=== PATIENT | male | born 1935 | race Caucasian/White ===

== ENCOUNTER → 2016-06-28 | Outpatient (CLI) | payer MEDICARE, BC ==
[2013-12-10 15:37] VITALS: BP 149/80
[~2016-06-28] MED LIST: CONTRAST GIVEN MC PRN; DUTA0.5C PO; IOHEXOL 240 MG/ML 50ML VIAL. PO ONE; IOHEXOL 300 MG/ML 100ML VIAL. IV ONE; LITH300T PO; [UNRECOGNIZED DRUG - CODE] PO
--- NOTE | 2016-06-28 16:14 | KCIC ---
CT abdomen and pelvis with contrast Indication: Bilateral inguinal hernias. Axial imaging through the abdomen and pelvis was performed after the administration of intravenous contrast. PQRS STATEMENT One or more of the following individualized dose reduction techniques were utilized for this study: 1.Automated exposure control. 2.Adjustment of the mA and/orkVaccording to patient size. 3.Use of iterative reconstruction technique. No prior studies are available for comparison. The lung bases are clear. The liver and gallbladder are unremarkable. The pancreas and spleen are unremarkable. No adrenal mass is detected. The kidneys are unremarkable. Aorta is non aneurysmal. No central retroperitoneal or mesenteric lymphadenopathy is detected. The small and large bowel loops are normal caliber. There is diverticulosis of the descending colon and sigmoid, however, no evidence of acute diverticulitis. No free fluid is seen. There are bilateral inguinal hernias. The right inguinal hernia does contain a loop of small bowel but no definite evidence of small bowel obstruction is seen. The left inguinal hernia is fat containing. No free air is seen. Impression: Bilateral inguinal hernias. The right inguinal hernia does contain a loop of small bowel but there is no evidence of small bowel obstruction. The left inguinal hernia is fat containing. The study is otherwise unremarkable. Uncomplicated diverticulosis. Electronically signed by: Cali Le MD (Jun 28, 2016 16:13:28)
== END | disposition home or self-care (01) ==
LOC: KCIC CT 14:31
PROVIDERS: ATTEND Nurse Practitioner Family
DX: K40.20 Bilateral inguinal hernia, without obstruction or gangrene, not specified as recurrent (principal); Z87.891 Personal history of nicotine dependence
CPT/HCPCS: 74177; Q9966; Q9967; 82565

== ENCOUNTER 2016-08-06 09:15 | Day surgery (SDC) | payer MEDICARE, BC ==
[~2016-08-06] VITALS: Ht 177.8 cm; Wt 76.2 kg
[~2016-08-06 09:15] MED LIST changes: +ACETAMINOPHEN INTRAVENOUS 100 ML IV ONE; +BUPIVACAINE-EPI 0.25%-1:200000 MPF 30 ML VIAL. ONE; -CONTRAST GIVEN MC PRN; +HYDROmorphone 2 MG/ML VIAL IV PRN; -IOHEXOL 240 MG/ML 50ML VIAL. PO ONE; -IOHEXOL 300 MG/ML 100ML VIAL. IV ONE; +IV RINGERS,LACTATED 1000ML 1,000 ML IV SCH; +LIDOCAINE 1% 1 ML SYRINGE. ID PRN; -LITH300T PO; +LITH300T30 PO; +MORPHINE SULFATE 2 MG/ML DISP.SYRIN. IV PRN; +ONDANSETRON PF 4 MG/2 ML VIAL. IV PRN; +PROCHLORPERAZINE 10 MG/2 ML VIAL. IV PRN; +fentaNYL PF VIAL 100 MCG/2 ML VIAL IV PRN
[2016-08-06] MEDS ORDERED: LITH600C PO (10:26)
[2016-08-06] MEDS ORDERED: IV RINGERS,LACTATED 1000ML 1,000 ML IV SCH (10:30)
[2016-08-06] MEDS ORDERED: LIDOCAINE 2% 100 MG/5 ML SYRINGE. ONE (11:46)
[2016-08-06] MEDS ORDERED: PROPOFOL 20 ML IV ONE (11:46)
[2016-08-06] MEDS ORDERED: SUCCINYLCHOLINE 200 MG/10 ML VIAL. ONE (11:47)
[2016-08-06] MEDS ORDERED: ROCURONIUM 50 MG/5 ML VIAL. ONE (11:49)
[2016-08-06] MEDS ORDERED: fentaNYL PF VIAL 100 MCG/2 ML VIAL ONE (11:49)
[2016-08-06] MEDS ORDERED: DESFLURANE 61 TO 120 MINUTES IH ONE (12:19)
[2016-08-06] MEDS ORDERED: CLINDAMYCIN PREMIX 600 MG/50 ML BAG. IV ONE (12:19)
[2016-08-06] MEDS ORDERED: DEXAMETHASONE SOD PHOS 20 MG/5 ML VIAL. ONE (12:19)
[2016-08-06] MEDS ORDERED: PHENYLEPHRINE in 0.9% NACL PF 1 MG/10 ML DISP.SYRIN. IV ONE (12:43)
[2016-08-06] MEDS ORDERED: ONDANSETRON PF 4 MG/2 ML VIAL. ONE (12:43)
[2016-08-06] MEDS ORDERED: NEOSTIGMINE METHYLSULFATE 5 MG/5 ML SYRINGE. ONE (12:44)
[2016-08-06] MEDS ORDERED: GLYCOPYRROLATE 1 MG/5 ML VIAL. ONE (12:44)
--- NOTE | 2016-08-06 13:40 | PDOC ---
BRIEF OPERATIVE NOTE Date: August 06, 2016 Pre-Op Diagnosis Bilateral Inguinal hernias Post-Op Diagnosis Same Procedure Performed Robotic assisted laprascopic bilateral inguinal hernia repair with mesh Surgeon Gulshan Anesthesiologist BRAYAN Anesthesia Type: General Blood Loss 10ml Specimens Obtained None Findings as above Complications None SHITAL HUFF MD August 06, 2016 13:40
--- NOTE | 2016-08-06 13:41 | DISCH ---
DISCHARGE INSTRUCTIONS Condition on Discharge Condition on Discharge: Stable Activity After Discharge Activity Instructions for Disc: Avoid exertion Other activity instructions: No lifting >20lbs for 2 weeks Lifting Instructions after Dis: No heavy lifting Diet after Discharge Diet after Discharge: Regular Wound Incision Care Other wound/incision instructi: Elizabeth shower in 24 hours Contacting the after DC Call your doctor for: If your condition worsens Follow-Up Follow up with: Dr Huff in 1 week SHITAL HUFF MD August 06, 2016 13:41
[2016-08-06] MEDS: fentaNYL PF VIAL 100 MCG/2 ML VIAL IV PRN ×2 (14:02→14:38)
[2016-08-06] MEDS ORDERED: HYDROcodone/APAP 5/325MG 1 TAB TABLET PO ONE (14:30)
[2016-08-06] MEDS ORDERED: HYDR-971 PO (14:32)
[2016-08-06 15:45] VITALS: BP 135/78
--- NOTE | 2016-08-06 22:54 | OP ---
DATE OF SURGERY: 08/06/2016 PREOPERATIVE DIAGNOSIS: Bilateral inguinal hernia. POSTOPERATIVE DIAGNOSIS: Bilateral inguinal hernia. PROCEDURE: Robotic-assisted laparoscopic bilateral inguinal hernia repair with mesh. SURGEON: Arjun Huff M.D. INDICATIONS: The patient is an 81-year-old gentleman who has complained of a bilateral bulges in both groins, was becoming more tender. Procedure of robotic-assisted laparoscopic inguinal hernia repair was explained to the patient in detail. Risks, benefits were also discussed including bleeding, infection, injury to intra-abdominal contents, possibly sustaining further open operations. Alternatives of this procedure were also discussed with the patient who seemed to understand and gave verbal and written consent to have the procedure performed. DESCRIPTION OF PROCEDURE: The patient was taken to the operating room and placed in the supine position, general anesthesia was initiated. Once the patient was asleep and intubated, he was then placed in low lithotomy. His abdomen was prepped and draped in usual sterile fashion using ChloraPrep. An area at the umbilicus was injected with 0.25% Marcaine with epinephrine. Incision was made with an 11 blade scalpel and a Veress needle was placed within the abdomen. Pneumoperitoneum was achieved. Once this was complete, an 8.5 mm da Mele port was placed. The da Mele camera was placed within the abdomen. Abdomen was inspected and it was noted that he had bilateral inguinal hernias direct, these 0.28 mm ports were placed, one in the mid right abdomen and one in the mid left abdomen under direct visualization. The da Mlee robot was then brought in and docked to the ports. Surgeon went to the robotic console. Using an EndoShears scissors and grasper, the peritoneum on the right side was incised with electrocautery and further opened with blunt and sharp dissection down to the hernia defect. The hernia sac was dissected free and brought out of the hernia defect. Once this was complete, ProGrip mesh was then placed over the hernia defect. This was placed circumferentially. The peritoneum was then closed with a running V-Loc suture. Attention was then turned to the left side externally. The peritoneum was incised with EndoShears scissors, further dissected inferiorly using blunt and sharp dissection. The hernia sac was dissected from the hernia defect. Again ProGrip mesh was laid over the hernia defect, secured into place and the peritoneum was then closed with a running V-Loc suture. The pneumoperitoneum was reduced. All ports were removed. The da Mele robot was undocked and removed. Skin incisions were closed with 4-0 subcuticular Monocryl, Mastisol, Steri-Strips and Band-Aids were applied as dressings. The patient was awakened, extubated in the operating room, taken to recovery in stable condition. All sponge, instrument counts listed as correct. Estimated blood loss 5 mL. ARJUN HUFF MD DR: TIFFANY/anel JOB#: [id number] / [id number] FILIPE Valdez MD
== END 2016-08-06 15:58 | disposition home or self-care (01) ==
LOC: SURG 09:15
PROVIDERS: ATTEND Surgery
DX: K40.20 Bilateral inguinal hernia, without obstruction or gangrene, not specified as recurrent (principal); Z72.0 Tobacco use; Z87.438 Personal history of other diseases of male genital organs; Z87.19 Personal history of other diseases of the digestive system; Z86.39 Personal history of other endocrine, nutritional and metabolic disease
CPT/HCPCS: 49650; C1781; J0131; J0330; J0780; J1100; J2370; J2405; J2704; J2710; J3010; J3490; J7120

== ENCOUNTER → 2019-02-04 | Outpatient (CLI) | payer MEDICARE ==
[~2019-02-04] MED LIST changes: -ACETAMINOPHEN INTRAVENOUS 100 ML IV ONE; -BUPIVACAINE-EPI 0.25%-1:200000 MPF 30 ML VIAL. ONE; +DARI7.5T8 PO; +HYDR-3164 PO; -HYDROmorphone 2 MG/ML VIAL IV PRN; -IV RINGERS,LACTATED 1000ML 1,000 ML IV SCH; -LIDOCAINE 1% 1 ML SYRINGE. ID PRN; +LITH600C PO; -MORPHINE SULFATE 2 MG/ML DISP.SYRIN. IV PRN; -ONDANSETRON PF 4 MG/2 ML VIAL. IV PRN; -PROCHLORPERAZINE 10 MG/2 ML VIAL. IV PRN; -[UNRECOGNIZED DRUG - CODE] PO; -fentaNYL PF VIAL 100 MCG/2 ML VIAL IV PRN
--- NOTE | 2019-02-04 16:54 | KCIC ---
EXAM: Right calcaneus 2 views. HISTORY: Right heel pain. COMPARISON: None. FINDINGS: No fractures are identified. The subtalar joint appears normal. There are moderate plantar and small posterior calcaneal spurs. IMPRESSION: 1. Moderate plantar and small posterior calcaneal spurs. Electronically signed by: Melquiades Aviles MD (02/04/2019 4:51 PM) [facility]
== END | disposition home or self-care (01) ==
LOC: KCIC 15:54
PROVIDERS: ATTEND Nurse Practitioner Family
DX: M77.31 Calcaneal spur, right foot (principal)
CPT/HCPCS: 73650

== ENCOUNTER → 2021-06-22 | Outpatient (CLI) | payer MEDICARE, BC ==
[2019-12-30 11:00] VITALS: BP 147/79
[~2021-06-22] MED LIST changes: +ASPI325T8 PO; +CLOT15CR5 TOP; -DARI7.5T8 PO; +IOHEXOL 240 MG/ML 50ML VIAL. PO ONE; +OLAN5TAB67 PO; +PSYL0.5215 PO; +SACC250C8 PO; +ST.300CA2 PO; +[UNRECOGNIZED DRUG - CODE] PO; +[UNRECOGNIZED DRUG - OTHER]
--- NOTE | 2021-06-22 17:13 | KCIC ---
PQRS Compliance Statement: One or more of the following individualized dose reduction techniques were utilized for this examinat ion: 1. Automated exposure control 2. Adjustment of the mA and/or kV according to patient size 3. Use of iterative reconstruction technique Exam performed: CT abdomen and pelvis with oral contrast. HISTORY: Abdominal pain, history of previous hernia repair 3 years ago DATE OF SERVICE: 06/22/2021. COMPARISON: CT abdomen pelvis from 06/28/2016. TECHNIQUE: Contiguous helical acquisitions are obtained through the abdomen and pelvis without IV con trast. Oral contrast was given. Sagittal and coronal reformatted images are obtained. FINDINGS: The lung bases are essentially clear. The visualized heart is normal. Unopacified liver, spleen, pancreas and gallbladder appear normal. Both adrenal glands and bilateral kidneys are normal in size without hydronephrosis or nephrolithiasis. Bilateral renal cysts. Mild ath eromatous calcification of the aorta without aneurysm. The small and large bowel loops are nondilated and unremarkable. Sigmoid diverticulosis without acute diverticulitis. The urinary bladder is distended. Prostate gland, seminal vesicles and rectum appear normal. No free or focal collections or pelvic lymphadenopathy is seen. IMPRESSION: Sigmoid diverticulosis without acute diverticulitis. No acute intra-abdominal or pelvic process seen. Electronically signed by: Susanna Estrella MD (06/22/2021 5:10 PM) [facility]
== END ==
LOC: KCIC CT 14:57
PROVIDERS: ATTEND Internal Medicine Gastroenterology
DX: K57.30 Diverticulosis of large intestine without perforation or abscess without bleeding (principal); N28.1 Cyst of kidney, acquired; I70.0 Atherosclerosis of aorta; N32.89 Other specified disorders of bladder
CPT/HCPCS: 74176; Q9966